=== PATIENT | male | born 1970 | race Caucasian/White ===

== ENCOUNTER 2023-05-11 10:08 | Emergency (ER) | payer OTHER ==
[~2023-05-11] VITALS: Ht 170.2 cm; Wt 83.9 kg
[2023-05-11 10:12] VITALS: BP 126/73; PULSE 68; RESP 18; TEMP 98; O2SAT 98
[2023-05-11] MEDS ORDERED: NAPR-1704 PO (13:39)
[2023-05-11 14:08] VITALS: BP 117/78; PULSE 65; RESP 18; O2SAT 97
== END 2023-05-11 14:08 | disposition home or self-care (01) ==
LOC: MED 10:08
DX: S63.591A Other specified sprain of right wrist, initial encounter (principal); M54.50 Low back pain, unspecified; M51.36 Other intervertebral disc degeneration, lumbar region; Z79.899 Other long term (current) drug therapy; X58.XXXA Exposure to other specified factors, initial encounter; Y93.89 Activity, other specified; Y92.89 Other specified places as the place of occurrence of the external cause; Y99.8 Other external cause status
CPT/HCPCS: 72100; 73110; 99284